=== PATIENT | female | born 1975 | race Caucasian/White ===

== ENCOUNTER 2018-01-19 07:42 | Inpatient (IN) | payer MEDICAID ==
[~2018-01-19 07:42] MED LIST: Bupivacaine 0.25% 10 ML SDV ONE; Fluorescein 5 ML Vial ONE; Glycopyrrolate 0.2 MG/ML SDV ONE; Lactated Ringers 1,000 ML IV SCH; Lidocaine 2% 5 ML SDV ONE; Methylene Blue 50 MG/10 ML Ampule ONE; Midazolam 1 MG/ML 2 ML SDV ONE; Neostigmine Methylsulfate 1 MG/ML 5 ML Syringe ONE; Ondansetron 4 MG/2 ML SDV ONE; Propofol 200 MG/20 ML SDV ONE; Sodium Chloride 0.9% 10 ML Syringe FLUSH PRN; Sodium Chloride 0.9% 2.5 ML Syringe FLUSH PRN; Sodium Chloride 0.9% 20 ML ONE; fentaNYL 250 MCG/5 ML SDV ONE
--- NOTE | 2018-01-19 08:05 | PCM.PREANE ---
Preanesthetic Assessment - Anesthesia/Transfusion/Family Hx Anesthesia History: Prior Anesthesia Without Reaction Family History of Anesthesia Reaction: No Transfusion History: No Prior Transfusion(s) - Review of Systems General: No Symptoms Pulmonary: No Symptoms Cardiovascular: No Symptoms Gastrointestinal: No Symptoms Neurological: No Symptoms Other: Reports: None - Physical Assessment NPO Status Date: 01/18/18 Height: 1.63 m Weight: 130.181 kg ASA Class: 3 Mental Status: Alert & Oriented x3 Airway Class: Mallampati = 1 Dentition: Reports: Normal Dentition ROM/Head Extension: Full Lungs: Clear to Auscultation, Normal Respiratory Effort Cardiovascular: Regular Rate, Regular Rhythm - Allergies Allergies/Adverse Reactions: Allergies Allergy/AdvReac Type Severity Reaction Status Date / Time ibuprofen Allergy Swelling Verified 01/14/18 09:28 - Anesthesia Plan Pre-Op Medication Ordered: None (Allergy to ibuprofen but can take other NSAIDs without problem.) - Acknowledgements Anesthesia Type Planned: General Anesthesia Pt an Appropriate Candidate for the Planned Anesthesia: Yes Alternatives and Risks of Anesthesia Discussed w Pt/Guardian: Yes Pt/Guardian Understands and Agrees with Anesthesia Plan: Yes PreAnesthesia Questionnaire Genitourinary History: Reports: None 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: Musculoskeletal History: Reports: Arthritis, Back Pain, Chronic, Fracture Other Musculoskeletal History: hx fx tailbone/sacrum Neurological History: Reports: Migraines Psychiatric History: Reports: Anxiety Endocrine/Metabolic History: Reports: Obesity/BMI 30+ Hematologic History: Reports: Anemia - Past Surgical History Head Surgeries/Procedures: Reports: None Female Surgical History: Reports: Cervical Cryotherapy, Other (See Below) Other Female Surgeries/Procedures: hx of removal of urethral cyst, EUA as a child after falling on monkey bars - SUBSTANCE USE Smoking Status *Q: Former Smoker Tobacco Use Within Last Twelve Months: No Recreational Drug Use History: No - HOME MEDS Home Medications: Home Meds Acetaminophen/Butalbital/Caff [Fioricet 325-50-40 MG] 1 tab PO ASDIRECTED PRN [History] Phentermine HCl 1 tab PO DAILY 01/14/18 [History] - CURRENT (IN HOUSE) MEDS Current Meds: Current Medications Fentanyl (Sublimaze) 50 mcg IVPUSH Q5M PRN PRN Reason: Pain (severe 7-10) Stop: 01/20/18 07:31 Cefazolin Sodium 3 gm/ Sodium (Chloride) 100 mls @ 100 mls/hr IV ONETIME MICHEL Stop: 01/20/18 05:59 Lactated Ringer's (Ringers, Lactated) 1,000 mls @ 125 mls/hr IV ASDIRECTED MICHEL Sodium Chloride (Saline Flush) 10 ml FLUSH ASDIRECTED PRN PRN Reason: Keep Vein Open Sodium Chloride (Saline Flush) 2.5 ml FLUSH ASDIRECTED PRN PRN Reason: Keep Vein Open Discontinued Medications Bupivacaine HCl (Sensorcaine-Mpf 0.25%) Confirm Administered Dose 20 ml .ROUTE .STK-MED ONE Stop: 01/19/18 07:30 Fentanyl (Sublimaze) Confirm Administered Dose 250 mcg .ROUTE .STK-MED ONE Stop: 01/19/18 07:10 Fluorescein Sodium (Ak-Fluor) Confirm Administered Dose 5 ml .ROUTE .STK-MED ONE Stop: 01/19/18 07:30 Glycopyrrolate (Robinul) Confirm Administered Dose 0.4 mg .ROUTE .STK-MED ONE Stop: 01/19/18 07:09 Sodium Chloride (Normal Saline) Confirm Administered Dose 20 mls @ as directed .ROUTE .STK-MED ONE Stop: 01/19/18 07:09 Lidocaine (Xylocaine-Mpf 2%) Confirm Administered Dose 5 ml .ROUTE .STK-MED ONE Stop: 01/19/18 07:09 Methylene Blue (Provayblue) Confirm Administered Dose 50 mg .ROUTE .STK-MED ONE Stop: 01/19/18 07:29 Midazolam HCl (Versed 1 Mg/Ml) Confirm Administered Dose 2 mg .ROUTE .STK-MED ONE Stop: 01/19/18 07:10 Neostigmine Methylsulfate (Neostigmine) Confirm Administered Dose 5 mg .ROUTE .STK-MED ONE Stop: 01/19/18 07:09 Ondansetron HCl (Zofran) Confirm Administered Dose 4 mg .ROUTE .STK-MED ONE Stop: 01/19/18 07:09 Propofol (Diprivan 20 Ml) Confirm Administered Dose 200 mg .ROUTE .STK-MED ONE Stop: 01/19/18 07:09 Vecuronium [place] (Vecuronium) Confirm Administered Dose 10 mg .ROUTE .STK-MED ONE Stop: 01/19/18 07:09
[2018-01-19 08:55] LABS: CHLORIDE,CL 105 mmol/L (98-107); SODIUM,NA 138 mmol/L (136-145)
[2018-01-19] MEDS ORDERED: Succinylcholine 200 MG/10 ML MDV ONE (09:22)
[2018-01-19] MEDS ORDERED: ceFAZolin 1 GM Vial ONE (09:32)
[2018-01-19] MEDS ORDERED: Sodium Chloride 0.9% 20 ML ONE (09:32)
[2018-01-19] MEDS ORDERED: Glycopyrrolate 0.2 MG/ML SDV ONE (09:53)
[2018-01-19] MEDS ORDERED: Furosemide 40 MG/4 ML VIAL ONE (09:59)
[2018-01-19] MEDS ORDERED: ePHEDrine 50 MG/ML SDV ONE (10:04)
[2018-01-19] MEDS ORDERED: fentaNYL 250 MCG/5 ML SDV ONE (10:21)
[2018-01-19] MEDS ORDERED: Promethazine 25 MG/ML SDV IM PRN (12:32)
[2018-01-19] MEDS ORDERED: Ondansetron 4 MG/2 ML SDV IVPUSH PRN (12:32)
[2018-01-19] MEDS ORDERED: oxyCODONE 5 MG Tab PO PRN (12:32)
[2018-01-19] MEDS ORDERED: Morphine 4 MG/ML Syringe IVPUSH PRN (12:32)
--- NOTE | 2018-01-19 12:45 | PCM.OPNOTE ---
- General Post-Op/Procedure Note Date of Surgery/Procedure: 01/19/18 Operative Procedure(s): Laparoscopic assisted vaginal hysterectom, bilateral salpingoophrectomy. Cystoscopy Findings: Bulky uterus 12 weeks size, normal appearing tubes and ovaries bilaterally. Patent ureters on cystoscopy Pre Op Diagnosis: Abnormal uterine bleeding Post-Op Diagnosis: Same Anesthesia Technique: Spinal Primary Surgeon: Rosalind Watkins Ticket Manager: Zhane Vernon Ticket Manager: Concha Pradhan Pathology: Uterus cervix, tubes, ovaries Fluid Replacement, Intraop: 300 EBL in mLs: 200 Complications: None Condition: Good
[2018-01-19] MEDS: Acetaminophen 1,000 MG in Premix Bag 1 BAG IV SCH ×2 (12:47→18:20)
[2018-01-19] MEDS: fentaNYL 100 MCG/2 ML SDV IVPUSH PRN ×4 (13:16→13:43)
[2018-01-19] MEDS ORDERED: Ketorolac 30 MG/ML SDV IVPUSH ONE ×2 (13:37→19:24)
[2018-01-19] MEDS ORDERED: Ketorolac 30 MG/ML SDV ONE (13:40)
[2018-01-19] MEDS ORDERED: HYDROmorphone 2 MG/ML SDV IVPUSH ONE (13:44)
[2018-01-19] MEDS ORDERED: HYDROmorphone 2 MG/ML SDV ONE (13:47)
--- NOTE | 2018-01-19 13:51 | PCM.POSTAN ---
POST ANESTHESIA ASSESSMENT - MENTAL STATUS Mental Status: Alert, Oriented - RESPIRATORY Respiratory Status: Airway Patent - CARDIOVASCULAR CV Status: Pulse Rate WNL, Blood Pressure Stable - GASTROINTESTINAL GI Status: No Symptoms - POST OP HYDRATION Hydration Status: Adequate & Stable (admit to ICU for continuous spo2 and etco2 monitoring. Will need significant doses of narcotics post op and is at high risk for complications from REMY)
[2018-01-19] MEDS: Lactated Ringers 1,000 ML IV SCH (16:00)
--- NOTE | 2018-01-19 19:42 | PCM.SURGPN ---
- General Info Date of Service: 01/19/18 POD#: 0 Functional Status: Reports: Tolerating Diet (clears), Incentive Spirometry - Review of Systems General: Reports: No Symptoms HEENT: Reports: No Symptoms Pulmonary: Reports: Other (Requiring BPAP) Cardiovascular: Reports: No Symptoms Gastrointestinal: Reports: Abdominal Pain Psychiatric: Denies: No Symptoms - Patient Data Vitals - Most Recent: Last Vital Signs Temp 36.5 C 01/19/18 07:50 Pulse 57 L 01/19/18 14:13 Resp 11 L 01/19/18 14:13 BP 129/80 01/19/18 14:13 Pulse Ox 98 01/19/18 14:13 Weight - Most Recent: 287 lb I&O - Last 24 Hours: Intake & Output 01/19/18 01/19/18 01/19/18 06:59 14:59 22:59 Intake Total 3800 Output Total 200 Balance 3600 Lab Results Last 24 Hrs: Laboratory Results - last 24 hr 01/19/18 01/19/18 01/19/18 Range/Units 08:20 08:20 08:20 WBC (4.0-11.0) K/uL RBC (4.30-5.90) M/uL Hgb (12.0-16.0) g/dL Hct (36.0-46.0) % MCV (80.0-98.0) fL MCH (27.0-32.0) pg MCHC (31.0-37.0) g/dL RDW Std Deviation (28.0-62.0) fl RDW Coeff of Jb (11.0-15.0) % Plt Count (150-400) K/uL MPV (7.40-12.00) fL Nucleated RBC % /100WBC Nucleated RBCs # K/uL Sodium 138 (136-145) mmol/L Potassium 4.0 (3.5-5.1) mmol/L Chloride 105 (98-107) mmol/L Carbon Dioxide 27.2 (21.0-32.0) mmol/L BUN 14 (7.0-18.0) mg/dL Creatinine 0.8 (0.6-1.0) mg/dL Est Cr Clr Drug Dosing 79.11 mL/min Estimated GFR (MDRD) > 60.0 ml/min Glucose 83 (74-106) mg/dL Calcium 8.9 (8.5-10.1) mg/dL HCG, Qual NEGATIVE (NEG) Blood Type A POSITIVE Antibody Screen NEGATIVE 01/19/18 Range/Units 08:20 WBC 6.53 (4.0-11.0) K/uL RBC 4.91 (4.30-5.90) M/uL Hgb 13.0 (12.0-16.0) g/dL Hct 39.2 (36.0-46.0) % MCV 79.8 L (80.0-98.0) fL MCH 26.5 L (27.0-32.0) pg MCHC 33.2 (31.0-37.0) g/dL RDW Std Deviation 42.3 (28.0-62.0) fl RDW Coeff of Jb 15 (11.0-15.0) % Plt Count 307 (150-400) K/uL MPV 9.20 (7.40-12.00) fL Nucleated RBC % 0.0 /100WBC Nucleated RBCs # 0 K/uL Sodium (136-145) mmol/L Potassium (3.5-5.1) mmol/L Chloride (98-107) mmol/L Carbon Dioxide (21.0-32.0) mmol/L BUN (7.0-18.0) mg/dL Creatinine (0.6-1.0) mg/dL Est Cr Clr Drug Dosing mL/min Estimated GFR (MDRD) ml/min Glucose (74-106) mg/dL Calcium (8.5-10.1) mg/dL HCG, Qual (NEG) Blood Type Antibody Screen Med Orders - Current: Current Medications Fentanyl (Sublimaze) 50 mcg IVPUSH Q5M PRN PRN Reason: Pain (severe 7-10) Stop: 01/20/18 07:31 Last Admin: 01/19/18 13:43 Dose: 50 mcg Acetaminophen 1,000 mg/ Premix 100 mls @ 400 mls/hr IV Q6H MICHEL Stop: 01/24/18 12:46 Last Admin: 01/19/18 18:20 Dose: 400 mls/hr Lactated Ringer's (Ringers, Lactated) 1,000 mls @ 125 mls/hr IV ASDIRECTED [facility] Morphine Sulfate (Morphine) 4 mg IVPUSH Q2H PRN PRN Reason: Pain (severe 7-10) Ondansetron HCl (Zofran) 4 mg IVPUSH Q6H PRN PRN Reason: Nausea/Vomiting Last Admin: 01/19/18 18:27 Dose: 4 mg Oxycodone HCl (Oxycodone) 5 mg PO Q4H PRN PRN Reason: Pain (moderate 4-6) Oxycodone HCl (Oxycodone) 10 mg PO Q4H PRN PRN Reason: Pain (moderate 4-6) Promethazine HCl (Phenergan) 25 mg IM Q6H PRN PRN Reason: Nausea/Vomiting Discontinued Medications Bupivacaine HCl (Sensorcaine-Mpf 0.25%) Confirm Administered Dose 20 ml .ROUTE .STK-MED ONE Stop: 01/19/18 07:30 Cefazolin Sodium (Ancef) Confirm Administered Dose 3 gm .ROUTE .STK-MED ONE Stop: 01/19/18 09:33 Ephedrine Sulfate (Ephedrine Sulfate) Confirm Administered Dose 50 mg .ROUTE .STK-MED ONE Stop: 01/19/18 10:05 Fentanyl (Sublimaze) Confirm Administered Dose 250 mcg .ROUTE .STK-MED ONE Stop: 01/19/18 07:10 Fentanyl (Sublimaze) Confirm Administered Dose 250 mcg .ROUTE .STK-MED ONE Stop: 01/19/18 10:22 Fluorescein Sodium (Ak-Fluor) Confirm Administered Dose 5 ml .ROUTE .STK-MED ONE Stop: 01/19/18 07:30 Furosemide (Lasix) Confirm Administered Dose 40 mg .ROUTE .STK-MED ONE Stop: 01/19/18 10:00 Glycopyrrolate (Robinul) Confirm Administered Dose 0.4 mg .ROUTE .STK-MED ONE Stop: 01/19/18 07:09 Glycopyrrolate (Robinul) Confirm Administered Dose 0.4 mg .ROUTE .STK-MED ONE Stop: 01/19/18 09:54 Hydromorphone HCl (Dilaudid) 2 mg IVPUSH ONETIME ONE Stop: 01/19/18 13:45 Last Admin: 01/19/18 13:51 Dose: 2 mg Hydromorphone HCl (Dilaudid) Confirm Administered Dose 2 mg .ROUTE .STK-MED ONE Stop: 01/19/18 13:48 Last Admin: 01/19/18 16:46 Dose: Not Given Cefazolin Sodium 3 gm/ Sodium (Chloride) 100 mls @ 100 mls/hr IV ONETIME MICHEL Stop: 01/20/18 05:59 Lactated Ringer's (Ringers, Lactated) 1,000 mls @ 125 mls/hr IV ASDIRECTED MICHEL Last Admin: 01/19/18 08:14 Dose: 125 mls/hr Sodium Chloride (Normal Saline) Confirm Administered Dose 20 mls @ as directed .ROUTE .STK-MED ONE Stop: 01/19/18 07:09 Sodium Chloride (Normal Saline) Confirm Administered Dose 20 mls @ as directed .ROUTE .STK-MED ONE Stop: 01/19/18 09:33 Acetaminophen (Ofirmev) Confirm Administered Dose 100 mls @ as directed IV .STK- MED ONE Stop: 01/19/18 12:43 Ketorolac Tromethamine (Toradol) 30 mg IVPUSH ONETIME ONE Stop: 01/19/18 13:38 Last Admin: 01/19/18 13:41 Dose: 30 mg Ketorolac Tromethamine (Toradol) Confirm Administered Dose 30 mg .ROUTE .STK- MED ONE Stop: 01/19/18 13:41 Last Admin: 01/19/18 15:40 Dose: Not Given Ketorolac Tromethamine (Toradol) 30 mg IVPUSH ONETIME ONE Stop: 01/19/18 19:25 Lidocaine (Xylocaine-Mpf 2%) Confirm Administered Dose 5 ml .ROUTE .STK-MED ONE Stop: 01/19/18 07:09 Methylene Blue (Provayblue) Confirm Administered Dose 50 mg .ROUTE .STK-MED ONE Stop: 01/19/18 07:29 Midazolam HCl (Versed 1 Mg/Ml) Confirm Administered Dose 2 mg .ROUTE .STK-MED ONE Stop: 01/19/18 07:10 Neostigmine Methylsulfate (Neostigmine) Confirm Administered Dose 5 mg .ROUTE .STK-MED ONE Stop: 01/19/18 07:09 Ondansetron HCl (Zofran) Confirm Administered Dose 4 mg .ROUTE .STK-MED ONE Stop: 01/19/18 07:09 Propofol (Diprivan 20 Ml) Confirm Administered Dose 200 mg .ROUTE .STK-MED ONE Stop: 01/19/18 07:09 Sodium Chloride (Saline Flush) 10 ml FLUSH ASDIRECTED PRN PRN Reason: Keep Vein Open Sodium Chloride (Saline Flush) 2.5 ml FLUSH ASDIRECTED PRN PRN Reason: Keep Vein Open Succinylcholine Chloride (Quelicin) Confirm Administered Dose 200 mg .ROUTE .STK -MED ONE Stop: 01/19/18 09:23 Vecuronium [place] (Vecuronium) Confirm Administered Dose 10 mg .ROUTE .STK-MED ONE Stop: 01/19/18 07:09 - Exam Wound/Incisions: Dressing Dry and Intact General: Alert, Oriented Lungs: Clear to Auscultation, Normal Respiratory Effort Cardiovascular: Regular Rate, Regular Rhythm GI/Abdominal Exam: Normal Bowel Sounds Extremities: Normal Inspection Skin: Warm Psy/Mental Status: Alert - Problem List & Annotations (1) Status post laparoscopic assisted vaginal hysterectomy (LAVH) SNOMED Code(s): 403569874, 97996586, 318708095 Code(s): Z90.710 - ACQUIRED ABSENCE OF BOTH CERVIX AND UTERUS Status: Acute Current Visit: Yes (2) Status post bilateral salpingo-oophorectomy (BSO) SNOMED Code(s): 723601744, 903201704 Code(s): Z90.722 - ACQUIRED ABSENCE OF OVARIES, BILATERAL Status: Acute Current Visit: Yes - Problem List Review Problem List Initiated/Reviewed/Updated: Yes - My Orders Last 24 Hours: Active Orders 24 hr Category Date Time Status Admission Status [Patient Status] [ADT] Routine ADT 01/19/18 13:44 Active Patient Status [ADT] Routine ADT 01/19/18 12:32 Active Bradycardia-Neuroaxis [employer] [RC] ROUTINE Care 01/19/18 07:31 Active Capnography Monitoring [RT End Tidal CO2 Monitoring] [ Care 01/19/18 13:38 Active RC] ASDIRECTED Hypertension-Neuroaxis [employer] [RC] ROUTINE Care 01/19/18 07:31 Active Hypotension-Neuroaxis [employer] [RC] ROUTINE Care 01/19/18 07:31 Active Intake and Output [RC] Q12H Care 01/19/18 12:34 Active Notify Provider Intake and Out [RC] ASDIRECTED Care 01/19/18 12:32 Active Notify Provider Vital Signs [RC] ASDIRECTED Care 01/19/18 12:32 Active Overnight Pulse Oximetry [RC] Click to Edit Care 01/19/18 13:38 Active Oxygen Therapy [RC] ASDIRECTED Care 01/19/18 12:32 Active Procedure Prep Instructions [RC] PER UNIT ROUTINE Care 01/19/18 05:00 Inactive Procedure Site Prep Instruct [RC] PER UNIT ROUTINE Care 01/19/18 05:00 Inactive Pulse Oximetry [RC] CONTINUOUS Care 01/19/18 12:37 Active RT BiPAP/CPAP [RC] ASDIRECTED Care 01/19/18 12:44 Active RT Incentive Spirometry [RC] Q2HWA Care 01/19/18 12:32 Active Up With Assistance [RC] PER UNIT ROUTINE Care 01/19/18 12:32 Active Up ad Rachel [RC] PER UNIT ROUTINE Care 01/19/18 12:32 Active Urinary Catheter Removal [RC] Per Unit Routine Care 01/19/18 12:32 Active Verify Patient Consent Obtain [RC] PER UNIT ROUTINE Care 01/19/18 05:00 Inactive Vital Signs [RC] PER UNIT ROUTINE Care 01/19/18 05:00 Inactive Vital Signs [RC] Q1H Care 01/19/18 12:32 Active Regular Diet [DIET] Diet 01/19/18 Dinner Active BASIC METABOLIC PANEL,BMP [CHEM] AM Lab 01/20/18 05:11 Ordered CBC WITH AUTO DIFF [HEME] AM Lab 01/20/18 05:11 Ordered Acetaminophen [Ofirmev] 1,000 mg Med 01/19/18 12:45 Active Premix Bag 1 bag IV Q6H Lactated Ringers [Ringers, Lactated] 1,000 ml Med 01/19/18 12:45 Active IV ASDIRECTED Morphine Med 01/19/18 12:32 Active 4 mg IVPUSH Q2H PRN Ondansetron [Zofran] Med 01/19/18 12:32 Active 4 mg IVPUSH Q6H PRN Promethazine [Phenergan] Med 01/19/18 12:32 Active 25 mg IM Q6H PRN fentaNYL [Sublimaze] Med 01/19/18 07:31 Active 50 mcg IVPUSH Q5M PRN oxyCODONE Med 01/19/18 12:32 Active 10 mg PO Q4H PRN oxyCODONE Med 01/19/18 12:32 Active 5 mg PO Q4H PRN Peripheral IV Discontinue [OM.PC] Routine Oth 01/19/18 12:32 Ordered Pulse Oximetry Continuous Monitoring [OM.PC] Routine Oth 01/19/18 13:38 Ordered Sequential Compression Device [OM.PC] Per Unit Routine Oth 01/19/18 12:32 Ordered Resuscitation Status Routine Resus Stat 01/19/18 12:32 Ordered Medication Orders Fentanyl (Sublimaze) 50 mcg IVPUSH Q5M PRN PRN Reason: Pain (severe 7-10) Stop: 01/20/18 07:31 Last Admin: 01/19/18 13:43 Dose: 50 mcg Admin: 01/19/18 13:38 Dose: 50 mcg Admin: 01/19/18 13:22 Dose: 50 mcg Admin: 01/19/18 13:16 Dose: 50 mcg Acetaminophen 1,000 mg/ Premix 100 mls @ 400 mls/hr IV Q6H MICHEL Stop: 01/24/18 12:46 Last Admin: 01/19/18 18:20 Dose: 400 mls/hr Infusion: 01/19/18 13:02 Dose: 400 mls/hr Admin: 01/19/18 12:47 Dose: 400 mls/hr Lactated Ringer's (Ringers, Lactated) 1,000 mls @ 125 mls/hr IV ASDIRECTED [facility] Morphine Sulfate (Morphine) 4 mg IVPUSH Q2H PRN PRN Reason: Pain (severe 7-10) Ondansetron HCl (Zofran) 4 mg IVPUSH Q6H PRN PRN Reason: Nausea/Vomiting Last Admin: 01/19/18 18:27 Dose: 4 mg Oxycodone HCl (Oxycodone) 5 mg PO Q4H PRN PRN Reason: Pain (moderate 4-6) Oxycodone HCl (Oxycodone) 10 mg PO Q4H PRN PRN Reason: Pain (moderate 4-6) Promethazine HCl (Phenergan) 25 mg IM Q6H PRN PRN Reason: Nausea/Vomiting - Assessment Assessment (Free Text/Narrative):: POD#0, s/p LAVH + BSO, stable. Currently in ICU for continuos monitoring of her breathing, she is requiring intermittent BPAP Her pain is not adequately controlled on IV tylenol and PRN Oxycodone, will add Toradol to her regimen. Although she is allergic Ibuprofen she is has taken other NSAIDs without any reactions in the past. - Plan Plan (Free Text/Narrative):: Continue current post op care. Encourage use of incentive spirometry
[2018-01-19] MEDS ORDERED: Ketorolac 30 MG/ML SDV IVPUSH SCH (20:00)
[2018-01-19] MEDS: oxyCODONE 5 MG Tab PO PRN (20:43)
[2018-01-20] MEDS: Acetaminophen 1,000 MG in Premix Bag 1 BAG IV SCH ×3 (00:07→13:23)
--- NOTE | 2018-01-20 00:39 | OR ---
SURGEON: Rosalind Watkins MD DATE OF PROCEDURE: 01/19/2018 MOTOR VEHICLE ASSEMBLER: 1. Zhane Vernon M.D. 2. Shweta PradhanMS IV. PREOPERATIVE DIAGNOSIS: Abnormal Uterine bleeding. POSTOPERATIVE DIAGNOSIS: Abnormal Uterine bleeding PROCEDURE PERFORMED: 1. Laparoscopic-assisted vaginal hysterectomy with bilateral salpingo- oophorectomy. 2. Cystoscopy. ANESTHESIA: General endotracheal. ESTIMATED BLOOD LOSS: 400 mL. IV FLUIDS: 3000 mls, crystalloids FINDINGS: Bulky mobile uterus, approximately 12 weeks' size.Normal-appearing tubes and ovaries. No evidence of bladder mucosa trauma with copious flow of fluorescent yellow dye from the ureteral orifices bilaterally on cystoscopy. COMPLICATIONS: None. DISPOSITION: Stable to the recovery room. BRIEF HISTORY: The patient is a 43-year-old lady, P3, with a longstanding history of heavy bleeding in irregular cycles. She has failed OCP- management- progestins. Her bleeding pattern had been so erratic that I had to give her a dose of Lupron for presumed adenomyosis, based on sonographic finding of bulky uterus (no definite myomas) but mainly on her symptoms. She responded well to the Lupron and it stopped her bleeding. All work up was negative, including a benign endometrial biopsy. After discussing various management options, she opted to proceed with definitive surgical intervention in form of a hysterectomy. She also opted to have her tubes and ovaries removed at the time of the surgery. She understands that some of the benefit of retaining her ovaries will be continual hormone production and that once be taken out, she would be rendered surgically menopausal and might require hormone therapy for vasomotor symptoms. Risks otherwise associated with the surgery were discussed including but not limited to bleeding, infection, injury to bowel , bladder, blood vessels, ureter and other vital organs and the risk of thromboembolic events and risk of anesthesia. In addition, she understands that these risks are somewhat more increased for her given her class III obesity status. Understanding all these risks, she does desire to proceed and an appropriate consent was obtained. DESCRIPTION OF PROCEDURE: The patient was taken to the operating room, where induction of general anesthesia was performed without difficulty. She was placed in dorsal lithotomy position after adequate level of anesthesia. The abdomen, perineum and vagina were prepped in the usual sterile fashion for laparoscopic vaginal surgery. A Garcia catheter was placed and backed filled with 30 mL of dilute methylene blue dye. She received 3 g of Ancef and SCDs were in place. Appropriate time-out was held. A bimanual examination revealed a mobile uterus, which was sounded to 12 cm. A weighted speculum was placed in the posterior vaginal wall and using a Nely retractor, the anterior vaginal wall was retracted. The cervix was grasped with an Allis clamp and a Zumi uterine manipulator was placed into the uterine cavity to aid uterine manipulation. The instruments and the Allis clamp were removed. Animal Care Specialist's gloves were changed. Attention was then turned abdominally, where the infraumbilical area was infiltrated with 0.25% of Marcaine. A 5 mm incision was made with a scalpel. Tenting the anterior abdominal wall upwards, Veress needle was inserted into the abdominal cavity with an open pressure of 6 mmHg noted. CO2 insufflation was performed and an adequate pneumoperitoneum of 15 mmHg was achieved. A 5 mm port was then placed into the umbilical incision and correct placement was confirmed with the laparoscope. Two additional incisions were then placed under direct visualization, 2 cm medial and cephalad from the anterior superior iliac spines on both the right and the left sides. The uterus was lifted and elevated out of the pelvis and inspected with the aforementioned findings noted. The ureters were identified and noted to be deep within the pelvis. Starting from the left side, the left fallopian tube was grasped with an atraumatic grasper and the infundibulopelvic ligament on the left side was identified, cross clamped, double ligated, and cut using a 5 mm ligature device. Continuing along the mesosalpinx, tissue was grasped, doubly ligated, and then cut until the round ligament was reached. The round ligament was then double ligated, cut using the ligature, the anterior lip of the broad ligament was then incised and a bladder flap was created. The posterior lip of the broad ligament was also incised, exposing the uterine vessels. Once the vessels were skeletonized adequately, vessels were then double ligated and cut. This process was repeated on the right side and the bladder flap was completed anteriorly. Once this was completed, the abdomen was desufflated and all the instruments were removed from the abdomen. Attention was then turned to the vagina to complete the surgery. A weighted Maci Auvard speculum was placed into the vagina posteriorly. The bladder was released. Using lateral vaginal wall retractors, the vaginal hayden were retracted both anteriorly and laterally. Anneliese tenaculum was used to grasp the cervix anteriorly and posteriorly. The cervix was then circumscribed with electrocautery. The vaginal mucosa anteriorly was pushed away from the cervix, pushing the bladder cephalad. This process was also repeated posteriorly, pushing the vaginal wall away from the cervix posteriorly. The posterior cul-de-sac was then entered sharply, performing a colpotomy and the speculum was advanced into the peritoneal cavity.The anterior colpotomy was also performed easily by sharp dissection, making sure that the finger was palpating along the dissection that was made laparoscopically. A right angle retractor was then placed anteriorly pushing the bladder cephalad. The uterosacral ligaments on both sides were then cross clamped with a Jovita clamp, cut, and ligated using Jovita suture of 2-0 Polysorb. Two additional pedicles were taken on both the right and the left sides. Once this was completed, the uterus with the tubes and ovaries attached was delivered vaginally and removed from the surgical field. The pedicles were examined and found to be hemostatic. The retained uterosacral ligaments were then attached to the vaginal apices bilaterally. The pedicles were then reexamined again and found to be completely hemostatic. The cuff was closed with a running locked suture of 0 Polysorb. The catheter was removed from the bladder and a cystoscopy was performed after intravenous fluorescein dye and Lasix had been given. There was copious flow of the yellow fluorescent dye bilaterally from the ureteral orifices. The catheter was replaced. The vagina was again inspected for complete hemostasis. The builder operator's gloves were then changed. Attention was turned abdominally, where the abdomen was re-insufflated. The pelvis was copiously irrigated and inspected. No bleeding area was noted. The abdomen was then reinspected on the 5 mmHg and was found to be completely hemostatic. Once this was completed, the abdomen was desufflated. All the port sites were removed. The skin incisions were closed with subcuticular stitches of 4-0 Monocryl suture. Final sponge, needle, and instrument counts were reported as correct. The patient was transferred to the recovery room in a stable condition. ADRIAN / ALEXYS /[id number] WILLIAM
[2018-01-20] MEDS: oxyCODONE 5 MG Tab PO PRN ×4 (01:06→15:45)
[2018-01-20] MEDS: Lactated Ringers 1,000 ML IV SCH (02:02)
[2018-01-20] MEDS: Ketorolac 30 MG/ML SDV IVPUSH SCH ×3 (02:05→14:28)
[2018-01-20 06:18] LABS: CHLORIDE,CL 108 mmol/L (98-107); SODIUM,NA 138 mmol/L (136-145)
--- NOTE | 2018-01-20 07:39 | PCM48HPAN ---
Post Anesthesia Note - EVALUATION WITHIN 48HRS OF ANESTHETIC Vital Signs in Normal Range: Yes Patient Participated in Evaluation: Yes Respiratory Function Stable: Yes Airway Patent: Yes Cardiovascular Function Stable: Yes Hydration Status Stable: Yes Pain Control Satisfactory: Yes Nausea and Vomiting Control Satisfactory: Yes Mental Status Recovered: Yes Resp Rate: 14
--- NOTE | 2018-01-20 10:31 | PCM.SURGPN ---
- General Info Date of Service: 01/20/18 POD#: 1 Functional Status: Reports: Pain Controlled, Tolerating Diet, Ambulating, Urinating - Review of Systems General: Denies: Fever, Malaise, Chills HEENT: Denies: Headaches Pulmonary: Denies: Shortness of Breath, Pleuritic Chest Pain Cardiovascular: Denies: Chest Pain, Palpitations, Dyspnea on Exertion Gastrointestinal: Reports: Abdominal Pain (Mild upper RUQ,) Genitourinary: Denies: Dysuria, Frequency, Flank Pain Musculoskeletal: Reports: No Symptoms Skin: Reports: No Symptoms Neurological: Reports: No Symptoms Psychiatric: Reports: No Symptoms - Patient Data Vitals - Most Recent: Last Vital Signs Temp 36.1 C 01/20/18 08:00 Pulse 60 01/19/18 18:58 Resp 12 01/20/18 09:00 BP 109/68 01/20/18 09:00 Pulse Ox 98 01/20/18 09:00 Weight - Most Recent: 297 lb 9.985 oz I&O - Last 24 Hours: Intake & Output 01/19/18 01/20/18 01/20/18 22:59 06:59 14:59 Intake Total 550 1775 800 Output Total 310 1950 Balance 240 -175 800 Lab Results Last 24 Hrs: Laboratory Results - last 24 hr 01/20/18 01/20/18 Range/Units 05:40 05:40 WBC 7.84 (4.0-11.0) K/uL RBC 3.88 L (4.30-5.90) M/uL Hgb 10.3 L (12.0-16.0) g/dL Hct 31.4 L (36.0-46.0) % MCV 80.9 (80.0-98.0) fL MCH 26.5 L (27.0-32.0) pg MCHC 32.8 (31.0-37.0) g/dL RDW Std Deviation 43.5 (28.0-62.0) fl RDW Coeff of Jb 15 (11.0-15.0) % Plt Count 270 (150-400) K/uL MPV 8.90 (7.40-12.00) fL Neut % (Auto) 71.8 (48.0-80.0) % Lymph % (Auto) 21.3 (16.0-40.0) % Waller % (Auto) 6.0 (0.0-15.0) % Eos % (Auto) 0.8 (0.0-7.0) % Baso % (Auto) 0.1 (0.0-1.5) % Neut # (Auto) 5.6 (1.4-5.7) K/uL Lymph # (Auto) 1.7 (0.6-2.4) K/uL Waller # (Auto) 0.5 (0.0-0.8) K/uL Eos # (Auto) 0.1 (0.0-0.7) K/uL Baso # (Auto) 0.0 (0.0-0.1) K/uL Nucleated RBC % 0.0 /100WBC Nucleated RBCs # 0 K/uL Sodium 138 (136-145) mmol/L Potassium 4.2 (3.5-5.1) mmol/L Chloride 108 H (98-107) mmol/L Carbon Dioxide 28.3 (21.0-32.0) mmol/L BUN 9 (7.0-18.0) mg/dL Creatinine 0.8 (0.6-1.0) mg/dL Est Cr Clr Drug Dosing 79.11 mL/min Estimated GFR (MDRD) > 60.0 ml/min Glucose 100 (74-106) mg/dL Calcium 8.1 L (8.5-10.1) mg/dL Med Orders - Current: Current Medications Acetaminophen 1,000 mg/ Premix 100 mls @ 400 mls/hr IV Q6H [facility] Stop: 01/24/18 12:46 Last Admin: 01/20/18 06:23 Dose: 400 mls/hr Lactated Ringer's (Ringers, Lactated) 1,000 mls @ 125 mls/hr IV ASDIRECTED [facility] Last Admin: 01/20/18 02:02 Dose: 125 mls/hr Ketorolac Tromethamine (Toradol) 30 mg IVPUSH Q6H [facility] Stop: 01/20/18 14:01 Last Admin: 01/20/18 08:42 Dose: 30 mg Morphine Sulfate (Morphine) 4 mg IVPUSH Q2H PRN PRN Reason: Pain (severe 7-10) Ondansetron HCl (Zofran) 4 mg IVPUSH Q6H PRN PRN Reason: Nausea/Vomiting Last Admin: 01/19/18 18:27 Dose: 4 mg Oxycodone HCl (Oxycodone) 5 mg PO Q4H PRN PRN Reason: Pain (moderate 4-6) Oxycodone HCl (Oxycodone) 10 mg PO Q4H PRN PRN Reason: Pain (moderate 4-6) Last Admin: 01/20/18 07:22 Dose: 10 mg Promethazine HCl (Phenergan) 25 mg IM Q6H PRN PRN Reason: Nausea/Vomiting Last Admin: 01/19/18 20:09 Dose: 25 mg Discontinued Medications Bupivacaine HCl (Sensorcaine-Mpf 0.25%) Confirm Administered Dose 20 ml .ROUTE .STK-MED ONE Stop: 01/19/18 07:30 Cefazolin Sodium (Ancef) Confirm Administered Dose 3 gm .ROUTE .STK-MED ONE Stop: 01/19/18 09:33 Ephedrine Sulfate (Ephedrine Sulfate) Confirm Administered Dose 50 mg .ROUTE .STK-MED ONE Stop: 01/19/18 10:05 Fentanyl (Sublimaze) Confirm Administered Dose 250 mcg .ROUTE .STK-MED ONE Stop: 01/19/18 07:10 Fentanyl (Sublimaze) 50 mcg IVPUSH Q5M PRN PRN Reason: Pain (severe 7-10) Stop: 01/20/18 07:31 Last Admin: 01/19/18 13:43 Dose: 50 mcg Fentanyl (Sublimaze) Confirm Administered Dose 250 mcg .ROUTE .STK-MED ONE Stop: 01/19/18 10:22 Fluorescein Sodium (Ak-Fluor) Confirm Administered Dose 5 ml .ROUTE .STK-MED ONE Stop: 01/19/18 07:30 Furosemide (Lasix) Confirm Administered Dose 40 mg .ROUTE .STK-MED ONE Stop: 01/19/18 10:00 Glycopyrrolate (Robinul) Confirm Administered Dose 0.4 mg .ROUTE .STK-MED ONE Stop: 01/19/18 07:09 Glycopyrrolate (Robinul) Confirm Administered Dose 0.4 mg .ROUTE .STK-MED ONE Stop: 01/19/18 09:54 Hydromorphone HCl (Dilaudid) 2 mg IVPUSH ONETIME ONE Stop: 01/19/18 13:45 Last Admin: 01/19/18 13:51 Dose: 2 mg Hydromorphone HCl (Dilaudid) Confirm Administered Dose 2 mg .ROUTE .STK-MED ONE Stop: 01/19/18 13:48 Last Admin: 01/19/18 16:46 Dose: Not Given Cefazolin Sodium 3 gm/ Sodium (Chloride) 100 mls @ 100 mls/hr IV ONETIME [facility] Stop: 01/20/18 05:59 Lactated Ringer's (Ringers, Lactated) 1,000 mls @ 125 mls/hr IV ASDIRECTED [facility] Last Admin: 01/19/18 08:14 Dose: 125 mls/hr Sodium Chloride (Normal Saline) Confirm Administered Dose 20 mls @ as directed .ROUTE .STK-MED ONE Stop: 01/19/18 07:09 Sodium Chloride (Normal Saline) Confirm Administered Dose 20 mls @ as directed .ROUTE .STK-MED ONE Stop: 01/19/18 09:33 Acetaminophen (Ofirmev) Confirm Administered Dose 100 mls @ as directed IV .STK- MED ONE Stop: 01/19/18 12:43 Ketorolac Tromethamine (Toradol) 30 mg IVPUSH ONETIME ONE Stop: 01/19/18 13:38 Last Admin: 01/19/18 13:41 Dose: 30 mg Ketorolac Tromethamine (Toradol) Confirm Administered Dose 30 mg .ROUTE .STK- MED ONE Stop: 01/19/18 13:41 Last Admin: 01/19/18 15:40 Dose: Not Given Ketorolac Tromethamine (Toradol) 30 mg IVPUSH ONETIME ONE Stop: 01/19/18 19:25 Last Admin: 01/19/18 19:45 Dose: 30 mg Ketorolac Tromethamine (Toradol) 30 mg IVPUSH Q6H [facility] Stop: 01/20/18 08:01 Last Admin: 01/19/18 20:49 Dose: Not Given Lidocaine (Xylocaine-Mpf 2%) Confirm Administered Dose 5 ml .ROUTE .STK-MED ONE Stop: 01/19/18 07:09 Methylene Blue (Provayblue) Confirm Administered Dose 50 mg .ROUTE .STK-MED ONE Stop: 01/19/18 07:29 Midazolam HCl (Versed 1 Mg/Ml) Confirm Administered Dose 2 mg .ROUTE .STK-MED ONE Stop: 01/19/18 07:10 Neostigmine Methylsulfate (Neostigmine) Confirm Administered Dose 5 mg .ROUTE .STK-MED ONE Stop: 01/19/18 07:09 Ondansetron HCl (Zofran) Confirm Administered Dose 4 mg .ROUTE .STK-MED ONE Stop: 01/19/18 07:09 Propofol (Diprivan 20 Ml) Confirm Administered Dose 200 mg .ROUTE .STK-MED ONE Stop: 01/19/18 07:09 Sodium Chloride (Saline Flush) 10 ml FLUSH ASDIRECTED PRN PRN Reason: Keep Vein Open Sodium Chloride (Saline Flush) 2.5 ml FLUSH ASDIRECTED PRN PRN Reason: Keep Vein Open Succinylcholine Chloride (Quelicin) Confirm Administered Dose 200 mg .ROUTE .STK -MED ONE Stop: 01/19/18 09:23 Vecuronium Landis (Vecuronium) Confirm Administered Dose 10 mg .ROUTE .STK-MED ONE Stop: 01/19/18 07:09 - Exam Wound/Incisions: Dressing Dry and Intact General: Alert, Oriented Lungs: Clear to Auscultation, Normal Respiratory Effort Cardiovascular: Regular Rate, Regular Rhythm GI/Abdominal Exam: Normal Bowel Sounds Extremities: Normal Inspection Psy/Mental Status: Alert, Normal Affect, Normal Mood - Problem List & Annotations (1) Status post laparoscopic assisted vaginal hysterectomy (LAVH) SNOMED Code(s): 321929468, 09573880, 983533421 Code(s): Z90.710 - ACQUIRED ABSENCE OF BOTH CERVIX AND UTERUS Status: Acute Current Visit: Yes (2) Status post bilateral salpingo-oophorectomy (BSO) SNOMED Code(s): 229467337, 405619970 Code(s): Z90.722 - ACQUIRED ABSENCE OF OVARIES, BILATERAL Status: Acute Current Visit: Yes - Problem List Review Problem List Initiated/Reviewed/Updated: Yes - My Orders Last 24 Hours: Active Orders 24 hr Category Date Time Status Admission Status [Patient Status] [ADT] Routine ADT 01/19/18 13:44 Active Capnography Monitoring [RT End Tidal CO2 Monitoring] [ Care 01/19/18 13:38 Active RC] ASDIRECTED Intake and Output [RC] Q4H Care 01/19/18 12:34 Active Notify Provider Intake and Out [RC] Q12H Care 01/19/18 12:32 Active Notify Provider Vital Signs [RC] ASDIRECTED Care 01/19/18 12:32 Active Overnight Pulse Oximetry [RC] Click to Edit Care 01/19/18 13:38 Active Oxygen Therapy [RC] ASDIRECTED Care 01/19/18 12:32 Active Pulse Oximetry [RC] CONTINUOUS Care 01/19/18 12:37 Active RT BiPAP/CPAP [RC] ASDIRECTED Care 01/19/18 12:44 Active RT Incentive Spirometry [RC] Q2HWA Care 01/19/18 12:32 Active Up With Assistance [RC] PER UNIT ROUTINE Care 01/19/18 12:32 Active Up ad Rachel [RC] PER UNIT ROUTINE Care 01/19/18 12:32 Active Vital Signs [RC] Q1H Care 01/19/18 12:32 Active Regular Diet [DIET] Diet 01/19/18 Dinner Active Acetaminophen [Ofirmev] 1,000 mg Med 01/19/18 12:45 Active Premix Bag 1 bag IV Q6H Ketorolac [Toradol] Med 01/20/18 02:00 Active 30 mg IVPUSH Q6H Lactated Ringers [Ringers, Lactated] 1,000 ml Med 01/19/18 12:45 Active IV ASDIRECTED Morphine Med 01/19/18 12:32 Active 4 mg IVPUSH Q2H PRN Ondansetron [Zofran] Med 01/19/18 12:32 Active 4 mg IVPUSH Q6H PRN Promethazine [Phenergan] Med 01/19/18 12:32 Active 25 mg IM Q6H PRN oxyCODONE Med 01/19/18 12:32 Active 10 mg PO Q4H PRN oxyCODONE Med 01/19/18 12:32 Active 5 mg PO Q4H PRN Peripheral IV Discontinue [OM.PC] Routine Oth 01/19/18 12:32 Ordered Pulse Oximetry Continuous Monitoring [OM.PC] Routine Oth 01/19/18 13:38 Ordered Sequential Compression Device [OM.PC] Per Unit Routine Oth 01/19/18 12:32 Ordered Resuscitation Status Routine Resus Stat 01/19/18 12:32 Ordered Medication Orders Acetaminophen 1,000 mg/ Premix 100 mls @ 400 mls/hr IV Q6H [facility] Stop: 01/24/18 12:46 Last Admin: 01/20/18 06:23 Dose: 400 mls/hr Infusion: 01/20/18 00:22 Dose: 400 mls/hr Admin: 01/20/18 00:07 Dose: 400 mls/hr Infusion: 01/19/18 18:35 Dose: 400 mls/hr Admin: 01/19/18 18:20 Dose: 400 mls/hr Infusion: 01/19/18 13:02 Dose: 400 mls/hr Admin: 01/19/18 12:47 Dose: 400 mls/hr Lactated Ringer's (Ringers, Lactated) 1,000 mls @ 125 mls/hr IV ASDIRECTED [facility] Last Admin: 01/20/18 02:02 Dose: 125 mls/hr Infusion: 01/20/18 00:00 Dose: 125 mls/hr Admin: 01/19/18 16:00 Dose: 125 mls/hr Ketorolac Tromethamine (Toradol) 30 mg IVPUSH Q6H [facility] Stop: 01/20/18 14:01 Last Admin: 01/20/18 08:42 Dose: 30 mg Admin: 01/20/18 02:05 Dose: 30 mg Morphine Sulfate (Morphine) 4 mg IVPUSH Q2H PRN PRN Reason: Pain (severe 7-10) Ondansetron HCl (Zofran) 4 mg IVPUSH Q6H PRN PRN Reason: Nausea/Vomiting Last Admin: 01/19/18 18:27 Dose: 4 mg Oxycodone HCl (Oxycodone) 5 mg PO Q4H PRN PRN Reason: Pain (moderate 4-6) Oxycodone HCl (Oxycodone) 10 mg PO Q4H PRN PRN Reason: Pain (moderate 4-6) Last Admin: 01/20/18 07:22 Dose: 10 mg Admin: 01/20/18 01:06 Dose: 10 mg Admin: 01/19/18 20:43 Dose: 10 mg Promethazine HCl (Phenergan) 25 mg IM Q6H PRN PRN Reason: Nausea/Vomiting Last Admin: 01/19/18 20:09 Dose: 25 mg - Assessment Assessment (Free Text/Narrative):: POD#1 s/p LAVH and BSO, stable and afebrile. She is doing well with her breathing and Oxygen, she didn't require BPAP over night. Tolerated Toradol well with no adverse reactions. Good urine output post removal of catheter Post op labs are WNL Just got her out of bed and ambulating the halls - Plan Plan (Free Text/Narrative):: Downgrade from ICU to regular floor Continue current management, encourage to ambulate the halls Will come back later today to review and discharge
== END 2018-01-20 16:45 | disposition home or self-care (01) | DRG 743 ==
LOC: MW.SDS 07:42 → MW.ICU 16:08
PROVIDERS: ADMIT Obstetrics & Gynecology; ATTEND Obstetrics & Gynecology
PROC: 0UT9FZZ Resection of Uterus, Via Natural or Artificial Opening With Percutaneous Endoscopic Assistance (ICD-10-PCS; principal; 2018-01-19)
PROC: 0UT2FZZ Resection of Bilateral Ovaries, Via Natural or Artificial Opening With Percutaneous Endoscopic Assistance (ICD-10-PCS; 2018-01-19)
PROC: 0UT7FZZ Resection of Bilateral Fallopian Tubes, Via Natural or Artificial Opening With Percutaneous Endoscopic Assistance (ICD-10-PCS; 2018-01-19)
PROC: 0TJB8ZZ Inspection of Bladder, Via Natural or Artificial Opening Endoscopic (ICD-10-PCS; 2018-01-19)
DX: N93.9 Abnormal uterine and vaginal bleeding, unspecified (principal)
CPT/HCPCS: 00944; 36415; 80048; 84703; 85025; 85027; 86850; 86900; 86901; 88307; 94660; A9270-GY; J0330; J0690; J1170; J1885; J1940; J2250; J2405; J2550; J2704; J3010; J7120

== ENCOUNTER 2018-06-28 07:25 | Day surgery (SDC) | payer MEDICAID ==
[~2018-06-28 07:25] MED LIST changes: -Bupivacaine 0.25% 10 ML SDV ONE; +Dexamethasone 4 MG/ML 5 ML MDV ONE; -Fluorescein 5 ML Vial ONE; -Glycopyrrolate 0.2 MG/ML SDV ONE; +Lidocaine 1% 0 ML ONE; -Lidocaine 2% 5 ML SDV ONE; -Methylene Blue 50 MG/10 ML Ampule ONE; -Neostigmine Methylsulfate 1 MG/ML 5 ML Syringe ONE; -Sodium Chloride 0.9% 10 ML Syringe FLUSH PRN; -Sodium Chloride 0.9% 2.5 ML Syringe FLUSH PRN; -Sodium Chloride 0.9% 20 ML ONE
[2018-06-28] MEDS ORDERED: ceFAZolin/Dextrose,Iso-Osmotic 2 GM/50 ML Duplex Bag IV ONE (07:28)
[2018-06-28] MEDS ORDERED: Acetaminophen/HYDROcodone 325-5 MG Tab PO PRN (08:00)
[2018-06-28] MEDS ORDERED: ceFAZolin 2 GM in Premix Bag 1 BAG IV SCH (08:00)
--- NOTE | 2018-06-28 08:02 | PCM.PREANE ---
Preanesthetic Assessment - Procedure Proposed Procedure: Right knee arthroscopy - Anesthesia/Transfusion/Family Hx Anesthesia History: Prior Anesthesia Reaction Other Type of Anesthesia Reaction Comment: trouble breathing post-op Family History of Anesthesia Reaction: No Transfusion History: No Prior Transfusion(s) Intubation History: Unknown Additional History: Unable to find documentation of her "ICU" stay overnite post hysterectomy in December because she was on BIPAP for that per patient. - Review of Systems General: Other (right knee pain and unable to bend; obesity) Pulmonary: Other Cardiovascular: No Symptoms Gastrointestinal: No Symptoms Neurological: Headache (migraines), Gait Disturbance (due to leg problem x last 4 months) Other: Reports: Anxiety - Physical Assessment NPO Status Date: 06/27/18 NPO Status Time: 22:00 Height: 5 ft 3.5 in Weight: 300 lb ASA Class: 3 Mental Status: Alert & Oriented x3 Airway Class: Mallampati = 2 Dentition: Reports: Normal Dentition Thyro-Mental Finger Breadths: 3 Mouth Opening Finger Breadths: 3 ROM/Head Extension: Limited/Partial (due to full obese neck) Lungs: Clear to Auscultation, Normal Respiratory Effort, Decreased Breath Sounds (probably due to her obesity) Cardiovascular: Regular Rate, Regular Rhythm, No Murmurs - Allergies Allergies/Adverse Reactions: Allergies Allergy/AdvReac Type Severity Reaction Status Date / Time ibuprofen Allergy Swelling Verified 06/23/18 10:12 - Blood Blood Available: No Product(s) Available: None - Anesthesia Plan Free Text/Narrative:: Prior GETA in december for hysterectomy - OET was 7.0, stable VSS throughtout Pre-Op Medication Ordered: None - Acknowledgements Anesthesia Type Planned: General Anesthesia (OET vs LMA; assess when supine in OR) Pt an Appropriate Candidate for the Planned Anesthesia: Yes Alternatives and Risks of Anesthesia Discussed w Pt/Guardian: Yes Pt/Guardian Understands and Agrees with Anesthesia Plan: Yes PreAnesthesia Questionnaire Genitourinary History: Reports: None [employer]INE[employer]ING [employer] 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 History: Reports: Musculoskeletal History: Reports: Fracture Other Musculoskeletal History: hx of fx tailbone Neurological History: Reports: Migraines, Other (See Below) Other Neuro History: hx of motion sickness Psychiatric History: Reports: Anxiety Endocrine/Metabolic History: Reports: Obesity/BMI 30+ Hematologic History: Reports: Anemia - Past Surgical History Female Surgical History: Reports: Hysterectomy, Other (See Below) Other Female Surgeries/Procedures: cyst removed from urethra as a child - SUBSTANCE USE Smoking Status *Q: Former Smoker Tobacco Use Within Last Twelve Months: No Recreational Drug Use History: No - HOME MEDS Home Medications: Home Meds Acetaminophen 2 tab PO ASDIRECTED PRN 06/23/18 [History] Aspirin 1 - 2 tab PO Q4H PRN 06/23/18 [History] oxyCODONE HCl/Acetaminophen [Oxycodone-Acetaminophen 5-325] 1 tab PO BEDTIME PRN 06/23/18 [History] - CURRENT (IN HOUSE) MEDS Current Meds: Current Medications Hydrocodone Bitart/Acetaminophen ([place] 325-5 Mg) 1 - 2 tab PO Q4H PRN PRN Reason: Pain Cefazolin Sodium/Dextrose 2 gm (/ Premix) 50 mls @ 100 mls/hr IV ONCALL MICHEL Lactated Ringer's (Ringers, Lactated) 1,000 mls @ 100 mls/hr IV ASDIRECTED MICHEL Discontinued Medications Cefazolin Sodium/Dextrose (Ancef) Confirm Administered Dose 2 gm IV .STK-MED ONE Stop: 06/28/18 07:29 Dexamethasone (Dexamethasone) Confirm Administered Dose 20 mg .ROUTE .STK-MED ONE Stop: 06/28/18 07:10 Fentanyl (Sublimaze) Confirm Administered Dose 250 mcg .ROUTE .STK-MED ONE Stop: 06/28/18 07:08 Lidocaine HCl (Xylocaine-Mpf 1%) Confirm Administered Dose 5 mls @ as directed .ROUTE .STK-MED ONE Stop: 06/28/18 07:10 Midazolam HCl (Versed 1 Mg/Ml) Confirm Administered Dose 2 mg .ROUTE .STK-MED ONE Stop: 06/28/18 07:08 Ondansetron HCl (Zofran) Confirm Administered Dose 4 mg .ROUTE .STK-MED ONE Stop: 06/28/18 07:10 Propofol (Diprivan 20 Ml) Confirm Administered Dose 200 mg .ROUTE .STK-MED ONE Stop: 06/28/18 07:08
[2018-06-28] MEDS ORDERED: Scopolamine 1.5 MG Transdermal Patch ONE (08:50)
[2018-06-28] MEDS ORDERED: Scopolamine 1.5 MG Transdermal Patch TRDERM PRN (09:57)
[2018-06-28] MEDS: fentaNYL 100 MCG/2 ML SDV IVPUSH PRN ×4 (09:58→10:13)
[2018-06-28] MEDS ORDERED: HYDROmorphone 2 MG/ML SDV IM ONE (10:16)
[2018-06-28] MEDS ORDERED: HYDROmorphone 2 MG/ML SDV IVPUSH ONE (10:26)
--- NOTE | 2018-06-28 10:34 | PCM.OPNOTE ---
- General Post-Op/Procedure Note Date of Surgery/Procedure: 06/28/18 Operative Procedure(s): R knee arthroscopy with partial lateral menisectomy Pre Op Diagnosis: R knee ACL tear Post-Op Diagnosis: R knee lateral meniscus tear Anesthesia Technique: General ET Tube Primary Surgeon: Carol Ann Hernandez Neon Glass Bender: Didi Rosales in mLs: 5 Condition: Good Free Text/Narrative:: tt= see nursing notes #[id number]
--- NOTE | 2018-06-28 10:50 | PCM.POSTAN ---
POST ANESTHESIA ASSESSMENT - MENTAL STATUS Mental Status: Alert, Oriented - VITAL SIGNS SaO2: 98 (on NC O2) - RESPIRATORY Respiratory Status: Respiratory Rate WNL, Airway Patent, O2 Saturation Stable - CARDIOVASCULAR CV Status: Pulse Rate WNL, Blood Pressure Stable - GASTROINTESTINAL GI Status: No Symptoms - PAIN Pain Score: 5 (complaint but improved with narcotic) - POST OP HYDRATION Hydration Status: Adequate & Stable - OBSERVATIONS Free Text/Narrative:: to phase II with NC O2 for weaning and preparation for discharge when meeting criterion
--- NOTE | 2018-06-28 11:09 | OR ---
SURGEON: Carol Ann Heranndez MD DATE OF PROCEDURE: 06/28/2018 PREOPERATIVE DIAGNOSIS: Right knee anterior cruciate ligament tear. POSTOPERATIVE DIAGNOSIS: Right knee lateral meniscus tear. PROCEDURE: Right knee arthroscopy with partial lateral meniscectomy. ASSORTER LAUNDRY: Didi Rosales PA-C. ANESTHESIA: General. ESTIMATED BLOOD LOSS: 5 mL. TOURNIQUET TIME: See nursing notes. COMPLICATIONS: None. DVT PROPHYLAXIS: Not indicated. IMPLANTS USED: None. BRIEF HISTORY: Yanira is a 43-year-old female, who has had complaint of continued right knee pain. An MRI did show a questionable injury to the ACL. Due to her lack of response to conservative treatment, I did recommend surgical intervention. The risks and goals of the procedure were discussed with the patient and were documented preoperatively. She agreed to proceed. DESCRIPTION OF PROCEDURE: The patient was properly identified and brought to the operating room. She was transferred from the OR cart and placed on the operating table in supine position. General anesthesia was administered. After adequate anesthesia was obtained, a well-padded tourniquet was applied to the right lower extremity. The right lower extremity was then prepped in standard fashion using ChloraPrep solution. It was then sterilely draped. A time-out was performed to ensure correct site and procedure. Preoperative antibiotics were given. The surgical site had been marked preoperatively. An Esmarch was used to exsanguinate the right lower extremity and the tourniquet was inflated to 250 mmHg. A lateral portal arthrotomy was established. Blunt trocar and cannula were introduced into the suprapatellar pouch. Camera, inflow, and outflow were assembled. No significant synovitis was noted. The patellofemoral joint was visualized. She had minor degenerative changes along the undersurface of the patella. The trochlea also showed diffuse grade 1-2 degenerative changes. The patella appeared to track centrally. The fat pad appeared somewhat hemorrhagic and did appear to be catching within the patellofemoral joint with flexion and extension of the knee. I then extended down the lateral and medial gutter. Mild synovitis was noted, however, no loose bodies were encountered. I then entered the medial compartment. A medial portal arthrotomy was established. A blunt probe was inserted. The meniscus was extensively probed and no tearing was noted. The joint surfaces showed grade 1 to grade 2 chondromalacia diffusely. I then entered the notch. The ACL appeared quite hemorrhagic, however, it was probed and found to be intact. Its insertion onto the lateral femoral condyle appeared intact and was visualized. Its attachment to the tibia also appeared intact. There was a small piece of redundant synovium anterior to the ACL, which was resected with a shaver. This was quite hemorrhagic and did cause some bleeding. I did increase the tourniquet to 300 mmHg at this time. The PCL was also visualized and probed and found to be intact. Finally, I entered the lateral compartment. A partial thickness tear in the red zone of the posterior horn of the lateral meniscus was noted. This was extensively probed and found to be stable. I did use the shaver to roughen the surface slightly to stimulate blood flow. She did have degenerative fraying along the posterior lateral aspect of the meniscus and this did show some instability. This was resected with a combination of biters and shaver. The meniscus was again probed and found to be stable. She did have a nearly full thickness fissure along the lateral border of the lateral tibial plateau. No loose cartilage was identified here. 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 I then returned to the patellofemoral joint. A portion of the fat pad was removed and no further impingement was noted along the patellofemoral joint. Instruments were then removed from the knee. The portal sites were closed with 3-0 nylon. 1% Lidocaine was injected along the portal tracts. Xeroform gauze was placed over the wound and a bulky dressing was applied. The tourniquet was then deflated. She was awakened from her anesthetic and transferred back to the operating room cart. She was brought to recovery room in stable condition. All needle and sponge counts were correct. MARU / ALEXYS /[id number]
[2018-06-28] MEDS ORDERED: Ondansetron 4 MG/2 ML SDV IVPUSH ONE (13:00)
[2018-06-28] MEDS ORDERED: Ondansetron 4 MG/2 ML SDV ONE (13:02)
[2018-06-28] MEDS ORDERED: Haloperidol Lactate 5 MG/ML SDV IM ONE ×2 (14:03→16:00)
--- NOTE | 2018-06-28 14:43 | PCM48HPAN ---
Post Anesthesia Note - EVALUATION WITHIN 48HRS OF ANESTHETIC Vital Signs in Normal Range: Yes Patient Participated in Evaluation: Yes Respiratory Function Stable: Yes Airway Patent: Yes Cardiovascular Function Stable: Yes Hydration Status Stable: Yes Pain Control Satisfactory: Yes Nausea and Vomiting Control Satisfactory: Yes Mental Status Recovered: Yes Resp Rate: 16
== END 2018-06-28 16:09 | disposition home or self-care (01) ==
LOC: MW.SDS 07:25
PROVIDERS: ATTEND Orthopaedic Surgery
DX: S83.281A Other tear of lateral meniscus, current injury, right knee, initial encounter (principal); M94.261 Chondromalacia, right knee; M65.861 Other synovitis and tenosynovitis, right lower leg; E66.9 Obesity, unspecified; Z68.43 Body mass index [BMI] 50.0-59.9, adult; Z87.891 Personal history of nicotine dependence; W18.2XXA Fall in (into) shower or empty bathtub, initial encounter
CPT/HCPCS: 29881; J0690; J1100; J1170; J2250; J2405; J2704; J3010; J7120